=== PATIENT | female | born 1980 | race Caucasian/White ===

== ENCOUNTER 2024-08-19 16:02 | Emergency (ER) | payer BC ==
[~2024-08-19] VITALS: Ht 165.1 cm; Wt 76.7 kg
[2024-08-19] MEDS ORDERED: ECOT81TA5 PO (16:13)
[2024-08-19] MEDS ORDERED: AMLO25TA PO (16:13)
[2024-08-19] MEDS ORDERED: ATOR80TA59 PO (16:13)
[2024-08-19] MEDS ORDERED: LOSA50TA5 PO (16:13)
[2024-08-19] MEDS ORDERED: METO37.5 PO (16:13)
[2024-08-19 16:47] LABS: BASO % 0.5 % (0.0-1.0); EOS # 0.1 10^3/uL (0.0-0.5); EOS % 0.9 % (0.0-3.0); HEMATOCRIT 40.7 % (36.0-47.0); HEMOGLOBIN 13.4 g/dl (12.0-15.5); LYMPH # 1.9 10^3/uL (1.5-5.0); LYMPH % 21.8 % (24.0-44.0); MEAN CORPUSCULAR HEMOGLOBIN 29.3 pg (27.0-33.0); MEAN CORPUSCULAR HGB CONC 32.9 g/dl (32.0-36.5); MEAN CORPUSCULAR VOLUME 88.9 fl (80.0-96.0); MONO # 0.5 10^3/uL (0.0-0.8); MONO % 5.4 % (2.0-8.0); PLATELET COUNT, AUTOMATED 329 10^3/uL (150-450); RED BLOOD COUNT 4.58 10^6/uL (4.00-5.40); WHITE BLOOD COUNT 8.5 10^3/uL (4.0-10.0)
[2024-08-19 16:56] LABS: KETONE, URINE AUTO RFX NEGATIVE (NEGATIVE); MUCUS, URINE RFX SMALL (NEGATIVE); NITRITE, URINE AUTO RFX NEGATIVE (NEGATIVE); RBC, URINE AUTO RFX 5 /HPF (0-3); SQUAM EPITHELIAL CELL UR AURFX 6 /HPF (0-6); WBC, URINE AUTO RFX 10 /HPF (0-3)
[2024-08-19 16:58] LABS: LEUKOCYTE ESTERASE UR AUTO RFX 1+ (NEGATIVE)
[2024-08-19] MEDS: KETOROLAC 30 MG/ML 1ML VIAL IV ONE (17:05)
[2024-08-19 17:12] LABS: ALBUMIN 3.9 G/DL (3.2-5.2); BILIRUBIN,DIRECT 0.2 MG/DL (<0.4); BILIRUBIN,TOTAL 0.7 MG/DL (0.3-1.2); TOTAL PROTEIN 7.3 G/DL (5.7-8.2)
[2024-08-19] MEDS: cefTRIAXone SOD 1 GM in DEXTROSE 5% (D5W) ADV/MINI-BAG 50 ML IV ONE (18:20)
[2024-08-19 19:18] LABS: Trichomonas vaginalis (AMP) NOT DETECTED (NEGATIVE)
[2024-08-19 19:39] LABS: GC DNA AMPLIFICATION NEGATIVE (NEGATIVE)
[2024-08-19] MEDS: ACETAMINOPHEN *IV* 1,000 MG in IV 1 EA IV ONE (20:55)
[2024-08-19] MEDS ORDERED: ACETAMINOPHEN 500 MG TAB PO ONE (23:20)
[2024-08-20] MEDS ORDERED: CEFD300C PO (00:09)
[2024-08-20] MEDS ORDERED: OXYC1TAB23 PO (00:09)
[2024-08-20] MEDS: OXYCODONE/APAP 5MG/325MG(HOME DOSE PACK) PO ONE (00:24)
[2024-08-20 00:27] VITALS: BP 130/73; TEMP 97.6; O2SAT 97
== END 2024-08-20 00:30 | disposition home or self-care (01) ==
LOC: M ED 16:02
DX: D25.9 Leiomyoma of uterus, unspecified (principal); N30.00 Acute cystitis without hematuria; N83.292 Other ovarian cyst, left side; K80.20 Calculus of gallbladder without cholecystitis without obstruction; I25.2 Old myocardial infarction; E24.9 Cushing's syndrome, unspecified; I10 Essential (primary) hypertension; Z87.442 Personal history of urinary calculi; Z95.5 Presence of coronary angioplasty implant and graft
CPT/HCPCS: 74176; 76830; 76856; 80047; 80076; 81001; 83690; 84702; 85025; 87086; 87661; 87810; 87850; 93976; 96374; 96375; 99284; J0131; J0696; J1885